=== PATIENT | male | born 1970 | race Caucasian/White ===

== ENCOUNTER → 2017-11-16 | Outpatient (CLI) | payer BC ==
[2017-11-16 12:20] LABS: T4, Free (Free Thyroxine) 1.03 ng/dL (0.78-2.19)
== END | disposition home or self-care (01) ==
LOC: LABWHC1 11:21
PROVIDERS: ATTEND Internal Medicine Interventional Cardiology
DX: E03.9 Hypothyroidism, unspecified (principal); I49.3 Ventricular premature depolarization
CPT/HCPCS: 36415; 84439; 84443